=== PATIENT | male | born 1985 | race Caucasian/White ===

== ENCOUNTER 2022-12-23 14:30 | Outpatient (CLI) | payer OTHER | END 2022-12-23 14:40 | disposition home or self-care (01) | LOC: PPH VACUNA 14:30 | PROVIDERS: ATTEND Emergency Medicine Pediatric Emergency Medicine | DX: Z23 Encounter for immunization (principal) | CPT/HCPCS: 90686; G0008 ==

== ENCOUNTER 2024-01-17 09:25 | Outpatient (CLI) | payer OTHER ==
[2024-01-19] MEDS ORDERED: METAXALONE800 MG PO (14:33)
[2024-01-19] MEDS ORDERED: DICLOFENAC POTA50 MG PO (14:33)
[2024-01-19] MEDS ORDERED: TORADOL60 MG IM (14:41)
[2024-01-19] MEDS ORDERED: ORPHENADRI30 MG/1 M1 IJ (14:44)
== END 2024-01-17 09:35 | disposition home or self-care (01) ==
LOC: PPH VACUNA 09:25
PROVIDERS: ATTEND Emergency Medicine Pediatric Emergency Medicine
DX: Z23 Encounter for immunization (principal)